=== PATIENT | female | born 1970 | race Hispanic/Latino ===

== ENCOUNTER 2021-12-06 05:05 | Emergency (ER) | payer MEDICARE ==
[2021-12-06] VITALS (10 sets, daily range): BP systolic 135–192; BP diastolic 85–117
[~2021-12-06] VITALS: Ht 167.6 cm; Wt 60.0 kg
[2021-12-06] MEDS ORDERED: URSODIOL500 MG PO (05:22)
[2021-12-06] MEDS ORDERED: AMOXICILLIN500 MG PO (05:23)
[2021-12-06] MEDS ORDERED: LIPITOR20 M1 PO (05:24)
[2021-12-06] MEDS ORDERED: NIFEDIPINE60 MG PO (05:25)
[2021-12-06] MEDS ORDERED: JARDIANCE10 MG PO (05:26)
[2021-12-06] MEDS ORDERED: ESCITALOPRAM OX10 MG PO (05:27)
[2021-12-06] MEDS ORDERED: CLONIDINE0.1 MG PO (05:28)
[2021-12-06 05:40] LABS: HEMATOCRIT 35.8 % (37.0-47.0); HEMOGLOBIN 12.1 g/dl (12.0-16.0); IMMATURE GRANULOCYTES 0.3 % (0.0-5.0); MEAN CELL VOLUME 88.6 fL CALC (80.0-100.0); MEAN CORPUSCULAR HGB CONC 33.8 g/dL CAL (32.0-36.0); NEUT# 3.31 thou/uL (2.00-7.15); RED BLOOD COUNT 4.04 mill/uL (4.20-5.60); RED CELL DISTRI WIDTH 12.9 % (11.5-15.5)
[2021-12-06 05:54] LABS: ALBUMIN 4.2 g/dL (3.2-5.0); ALKALINE PHOSPHATASE 214 u/l (38-126); ANION GAP 11 (6-22 (CALC)); BILIRUBIN, TOTAL 0.5 mg/dL (0.0-1.4); BUN 17 mg/dL (7-17); BUN/CREATININE RATIO 31 (12-20 (CALC)); CARBON DIOXIDE 27 mmol/l (22-30); CHLORIDE 105 mmol/l (95-108); CREATININE 0.5 mg/dL (0.5-1.0); GFR FOR AFR.AMER. > 60 ML/MIN (>=60 (CALC)); GFR OTHER RACES > 60 ML/MIN (>=60 (CALC)); POTASSIUM 3.5 mmol/l (3.5-5.1); SGOT/AST 48 u/l (14-36); SODIUM 139 mmol/l (137-146); TOTAL PROTEIN 8.3 g/dL (6.3-8.2)
[2021-12-06 05:55] LABS: URINE BILIRUBIN - DIPSTICK NEGATIVE (NEGATIVE); URINE BLOOD DIPSTICK LARGE (NEGATIVE); URINE COLOR YELLOW; URINE GLUCOSE - DIPSTICK NEGATIVE (NEGATIVE); URINE KETONE NEGATIVE (NEGATIVE); URINE LEUK ESTERASE TRACE (NEGATIVE); URINE PH 7.5 (4.5-8.0); URINE SPECIFIC GRAVITY 1.015; URINE UROBILINOGEN - DIPSTICK 0.2 E.U./dL (0.2)
[2021-12-06 06:05] LABS: MYOGLOBIN 22 ng/mL (0 - 62)
[2021-12-06 06:27] LABS: URINE NITRITE - DIPSTICK NEGATIVE (Negative)
[2021-12-06 06:28] LABS: URINE EPITHELIAL CELLS MANY EPI/hpf (0-FEW); URINE PROTEIN - DIPSTICK NEGATIVE (NEG-TRACE); URINE RBC 25-50 RBC/hpf (0-5)
[2021-12-06 06:29] LABS: URINE BACTERIA MODERATE hpf
[2021-12-06] MEDS ORDERED: DIFLUCAN100 M1 PO (10:12)
[2021-12-06] MEDS ORDERED: OMNI-PAC300 MG PO (10:12)
[2021-12-06] MEDS ORDERED: CODEINE/GUAIFEN1 SOL PO (10:12)
[2021-12-06] MEDS ORDERED: PREDNISONE20 MG PO (10:12)
== END 2021-12-06 11:07 | disposition home or self-care (01) ==
LOC: ED 05:05
PROVIDERS: Emergency Medicine
DX: U07.1 COVID-19 (principal); R07.9 Chest pain, unspecified; J11.1 Influenza due to unidentified influenza virus with other respiratory manifestations; J02.0 Streptococcal pharyngitis; N39.0 Urinary tract infection, site not specified; I10 Essential (primary) hypertension
CPT/HCPCS: Q9967